=== PATIENT | male | born 1940 ===

== ENCOUNTER → 2021-10-06 13:13 | Outpatient (BNVA) | payer OTHER, SELFPAY | PROVIDERS: PCP Physician Assistant; Visit Provider Nurse Practitioner Family | DX: G20 Parkinson's disease (principal); S06.0X9A Concussion with loss of consciousness of unspecified duration, initial encounter; F03.90 Unspecified dementia, unspecified severity, without behavioral disturbance, psychotic disturbance, mood disturbance, and anxiety | CPT/HCPCS: 99212 ==

== ENCOUNTER → 2021-11-26 13:46 | Outpatient (BNVA) | payer OTHER, SELFPAY | PROVIDERS: PCP Physician Assistant; Visit Provider Nurse Practitioner Family | DX: G20 Parkinson's disease (principal); F03.90 Unspecified dementia, unspecified severity, without behavioral disturbance, psychotic disturbance, mood disturbance, and anxiety; S06.0X9D Concussion with loss of consciousness of unspecified duration, subsequent encounter | CPT/HCPCS: 99212 ==

== ENCOUNTER → 2022-06-30 09:32 | Outpatient (BNVA) | payer OTHER, SELFPAY | PROVIDERS: PCP Physician Assistant; Visit Provider Nurse Practitioner Family | DX: G20 Parkinson's disease (principal); F03.90 Unspecified dementia, unspecified severity, without behavioral disturbance, psychotic disturbance, mood disturbance, and anxiety; H04.123 Dry eye syndrome of bilateral lacrimal glands | CPT/HCPCS: 99212 ==

== ENCOUNTER 2023-01-10 10:35 | Outpatient (AMB) | payer OTHER, SELFPAY ==
[2023-01-10 10:36] VITALS: BP 118/74; PULSE 67; O2SAT 97; BMI 27.6
--- NOTE | 2023-01-10 10:36 | A.OFFVIS_ITS ---
Intake Vital Signs 01/10/23 10:36 Height 5 ft 8 in Weight 181 lb 4 oz BMI 27.6 BP 118/74 Blood Pressure Location Rt brachial Position Sitting Pulse 67 Pulse Source Pulse Oximeter Pulse Oximetry (%) 97 Oxygen Delivery Method Room Air Intake Visit Reasons: 4 mo follow up Intake Note: Pt presents as a 4 month f/u for Parkinsons with his daughter. 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 Accompanied by: Daughter Allergies No Known Allergies Allergy (Verified 01/10/23 10:43) Medication List - Last Reconciled 01/10/23 by ARACELI Jordan albuterol sulfate 90 mcg/actuation 0 mcg inhalation amlodipine 10 mg PO DAILY artifi.tears(hypromellose)(PF) 0.3% 1 drp ophthalmic (eye) QID PRN bisacodyl (Dulcolax (bisacodyl)) 10 mg VT DAILY PRN carbidopa-levodopa 23.75-95 mg ER (Rytary) 1 cap PO QID carbidopa-levodopa 48.75-195 mg ER (Rytary) 2 caps PO QID clopidogrel 75 mg PO DAILY dextrose (Dex4 Glucose) grams PO finasteride 5 mg PO DAILY glucagon (GlucaGen Diagnostic Kit) 1 mg subcut Q20M PRN hydralazine 50 mg PO TID lactulose 30 mL PO DAILY lisinopril 10 mg PO DAILY meclizine 12.5 mg PO TID PRN melatonin 6 mg PO BEDTIME PRN menthol 5% (Icy Hot (menthol)) 1 patch topical DAILY PRN metformin 500 mg PO DAILY nitroglycerin 0 mg sublingual ondansetron HCl 0 mg PO BID rasagiline 1 mg PO DAILY simethicone 80 mg PO BID-QID PRN HPI HPI Comments History of Present Illness Details 82 -yr-old male presents for f/u visit, accompanied by his dtr Karen. Pt's dtr reports that pt had a hospitalization during the winter, and has been diagnosed w/ CHF. Since he continues to have SOB, chest pains, and dizziness. Pt's current PD medication regimen: Rytary 48.75-195mg 2 caps plus 23.75-95mg 1 cap QID and Rasagiline 1mg qd. Pt's primary concerns are: the increased dizziness. ADL's: Needs Assist Swallowing: No issues Cough: Prone to coughing- randomly Drooling: Nocturnal Drooling Eyes: Eyes can be dry, may feel his vision is cloudy- he is receiving his tear gtts regularly Orthostatic lightheadedness: He reports orthostatic spinning dizziness but also this can just occur unprovoked when laying in bed. Constipation: He can be constipated- uses Lactulose prn Freezing: At times Stiffness: A bit increased. Tremor: At times- varies Falls: He reports that last week- he slipped trying to get out of his bedside chair- states he fell to the floor and was able to get himself back up into his chair w/o difficulty- his right side was sore but this is better now. Hallucinations: Denies visual hallucinations- may here a noise but nothing is there. Memory: Stable- he feels may be worse, dtr feels he is talking more Sleep: Not well- can be awake all night- may be worrying about things Exercise: Walking regularly. [facility] Surgical History No pertinent past surgical history Social History (Updated 01/10/23 @ 10:51 by Meera Madrid CMA) Alcohol intake: never Patient Tobacco Use Status: Never used Tobacco Review of Systems Const All systems reviewed & are unremarkable except as noted in HPI and below Physical Exam Vital Signs: Last Vital Signs Pulse 67 01/10/23 10:36 BP 118/74 01/10/23 10:36 Pulse Ox 97 01/10/23 10:36 Oxygen Delivery Method Room Air 01/10/23 10:36 BMI result Body Mass Index 27.6 Const General: cooperative and no acute distress Resp Effort & Inspection: normal respiratory effort and able to speak in complete sentences Neuro Other: Expression:? Decreased expression and blink Voice:? Hypophonia Tremor:? Rue spread of movement tremor induced by RLE foot taps Tone:? Bilateral upper extremity rigidity Dyskinesia:? None FFM:? Bilateral upper extremity bradykinesia Foot taps:? Bilateral lower extremity bradykinesia Gait:? Stands easily today, posture good, short steps, steady gait with walker Psych:? Pleasant affect Cognition:?Alert and oriented, responding appropriately. Short-term memory lapses Assessment & Plan Assessment & Plan (1) Parkinson's disease: Code(s): G20 - Parkinson's disease (2) Dementia without behavioral disturbance: Code(s): F03.90 - Unspecified dementia, unspecified severity, without behavioral disturbance, psychotic disturbance, mood disturbance, and anxiety Plan Requested PT vestibular eval & tx. Continue extra fluids to help w/ dizziness/orthostatic lightheadedness. Continue Tylenol prn. Continue Rytary 48.75-195mg 2 caps plus 23.75-95mg 1 cap QID. Continue Rasagiline 1mg qd. Continue tear gtts. Continue regular walking w/ walker. Discussed tips to break freezing episodes- such as stepping in place or tapping his leg with his hand beofre turning/walking. Monitor hallucinations. Future considerations- increasing Rytary or adding on-time promoting agent to reduce stiffness- however this could exacerbate OH s/s. Coding Level of Care Code Est Pt Level 4 (06900) Diagnoses Parkinson's disease G20 Dementia without behavioral disturbance F03.90
== END 2023-01-10 11:41 | disposition home or self-care (01) ==
LOC: HO.HSMS 10:35
PROVIDERS: PCP Physician Assistant; Visit Provider Nurse Practitioner Family
DX: G20 Parkinson's disease (principal); F03.90 Unspecified dementia, unspecified severity, without behavioral disturbance, psychotic disturbance, mood disturbance, and anxiety
CPT/HCPCS: 99214

== ENCOUNTER → 2023-01-10 10:35 | Outpatient (BNVA) | payer OTHER, SELFPAY | PROVIDERS: PCP Physician Assistant; Visit Provider Nurse Practitioner Family | DX: G20 Parkinson's disease (principal); F03.90 Unspecified dementia, unspecified severity, without behavioral disturbance, psychotic disturbance, mood disturbance, and anxiety | CPT/HCPCS: 99212 ==

== ENCOUNTER 2023-04-27 11:29 | Outpatient (AMB) | payer OTHER, SELFPAY ==
--- NOTE | 2023-04-27 11:32 | A.OFFVIS_ITS ---
Intake Vital Signs 04/27/23 11:33 Height 5 ft 8 in Pulse 80 Pulse Source Pulse Oximeter Pulse Oximetry (%) 98 Oxygen Delivery Method Room Air Intake Visit Reasons: 4 mo follow up - Confirmed Intake Note: Patient presents for 4 month follow up. Patient states he's a lot different now his parkinson's is taking over where he''s not mobile. he's also had a lot of falls and he's been in the hospital. Allergies No Known Allergies Allergy (Verified 04/27/23 11:42) HPI HPI Comments History of Present Illness Details 83-yr-old male presents for f/u visit, a ccompanied by his dtr Pt has had a recent hospital eval for orthostatic hypotension, but by the time he arrived at the ER, he was hypertensive. Dtr states he was also dx'd w/ CHF. He had been having episodes of standing in the mirror for hours, trying to wipe something off his face. He has started sleeping during the day and being up all night. However, since he returned from the hospital, he has been slower, stiffer, more shaky, and unable to walk. He can still feel lightheaded/dizzy. [facility] Medical History (Updated 07/03/23 @ 21:12 by ARACELI Jordan) Parkinson's disease Surgical History No pertinent past surgical history Social History Alcohol intake: never Patient Tobacco Use Status: Never used Tobacco Review of Systems Const All systems reviewed & are unremarkable except as noted in HPI and below Physical Exam Vital Signs: Last Vital Signs Pulse 80 04/27/23 11:33 Pulse Ox 98 04/27/23 11:33 Oxygen Delivery Method Room Air 04/27/23 11:33 Const General: cooperative and no acute distress Resp Effort & Inspection: normal respiratory effort and able to speak in complete sentences Neuro Other: General: Alert, responding appropriately Expression:? Decreased expression and blink Voice:? Hypophonia Tremor:? Rue spread of movement tremor induced by RLE foot taps Tone:? Bilateral upper extremity rigidity Dyskinesia:? None FFM:? Bilateral upper extremity bradykinesia Foot taps:? Bilateral lower extremity bradykinesia Gait:? Sitting upright in w/c Psych:? 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 Continue Rytary 48.75-195mg 2 caps plus 23.75-95mg 1 cap QID. Continue Rasagiline 1mg qd. Continue tear gtts.g. Monitor hallucinations. Future considerations- adjusting Rytary or adding on-time promoting agent to reduce stiffness- however this could exacerbate OH s/s, adding BP support tx- droxidopa/midodrine. Coding Level of Care Code Est Pt Level 4 (77459) Diagnoses Parkinson's disease without dyskinesia G20.A1 Dementia without behavioral disturbance F03.90 Dry eyes H04.123 Psychosis due to Parkinson's disease G20.A1; F06.8
[2023-04-27 11:33] VITALS: PULSE 80; O2SAT 98
== END 2023-04-27 12:11 | disposition home or self-care (01) ==
PROVIDERS: PCP Physician Assistant; Visit Provider Nurse Practitioner Family
DX: G20.A1 Parkinson's disease without dyskinesia, without mention of fluctuations (principal); F03.90 Unspecified dementia, unspecified severity, without behavioral disturbance, psychotic disturbance, mood disturbance, and anxiety; H04.123 Dry eye syndrome of bilateral lacrimal glands; F06.8 Other specified mental disorders due to known physiological condition
CPT/HCPCS: 99214

== ENCOUNTER → 2023-04-27 11:29 | Outpatient (BNVA) | payer OTHER, SELFPAY | PROVIDERS: PCP Physician Assistant; Visit Provider Nurse Practitioner Family | DX: G20.A1 Parkinson's disease without dyskinesia, without mention of fluctuations (principal); F03.90 Unspecified dementia, unspecified severity, without behavioral disturbance, psychotic disturbance, mood disturbance, and anxiety; H04.123 Dry eye syndrome of bilateral lacrimal glands | CPT/HCPCS: 99212 ==